=== PATIENT | male | born 1980 | race African-American/Black ===

== ENCOUNTER 2022-09-06 02:06 | Emergency (ER) | payer MEDICAID ==
[~2022-09-06] VITALS: Ht 182.9 cm; Wt 92.5 kg
[2022-09-06 02:11] VITALS: BP_SYST 139
--- NOTE | 2022-09-06 02:20 | NUR ---
Pt from home with c/o palpitations that started today. Pt reports dizziness and weakness in the bilateral legs. Pt reports having a lot of caffine today. HR in 70s and increases to 90s when pt starts to feel dizzy.
--- NOTE | 2022-09-06 02:27 | NUR ---
OZZY Steven at bedside.
[2022-09-06] MEDS ORDERED: MECLIZINE HCL 25 MG TABLET (ANITVERT) PO ONE (02:30)
[2022-09-06] MEDS ORDERED: NACL 0.9% 1,000 ML IV ONE (02:30)
[2022-09-06] MEDS ORDERED: METOCLOPRAMIDE HCL 10 MG/2 ML VIAL IVP ONE (02:30)
--- NOTE | 2022-09-06 02:33 | NUR ---
Patient to ER bed 07 to gown for evaluation. Side rails up. Report given to Deanna THOMPSON.
--- NOTE | 2022-09-06 02:33 | NUR ---
Report received from JAY Grey; assuming care of patient at this time.
--- NOTE | 2022-09-06 02:50 | NUR ---
# 22 gauge angiocath placed to right ac. Use of asceptic technique. Opsite placed over site. Blood return noted. Flushed with 10 cc of normal saline. No evidence of infiltration noted. Patient tolerated well.
--- NOTE | 2022-09-06 03:00 | NUR ---
Patient resting in bed with side rails raised. Patient's significant other at bedside. Nad noted at this time.
[2022-09-06 04:24] LABS: CALCIUM 8.4 mg/dL (8.4-11.0); CREATININE 1.36 mg/dL (0.55-1.30); POTASSIUM 3.7 mmol/L (3.5-5.1)
[2022-09-06 04:30] LABS: BASOPHILS % (AUTO) 0.6 % (0.0-2.0); EOSINOPHILS # (AUTO) 0.5 K/uL (0.0-0.4); EOSINOPHILS % (AUTO) 6.1 % (0.0-4.0); HEMATOCRIT 46.8 % (36-54); HEMOGLOBIN 16.2 g/dL (14.0-18.0); LYMPHOCYTES % (AUTO) 23.6 % (20.5-51.5); MEAN CORPUSCULAR HEMOGLOBIN 31 pg (27-31); MEAN CORPUSCULAR HGB CONC 35 % (32-36); MEAN CORPUSCULAR VOLUME 90 fL (79.0-98.0); MONOCYTES # (AUTO) 0.5 K/uL (0.0-1.0); MONOCYTES % (AUTO) 6.6 % (1.7-9.3); NEUTROPHILS # (AUTO) 5.2 K/uL (1.8-7.7); NEUTROPHILS % (AUTO) 63.1 % (40.0-70.0); PLATELET COUNT (AUTO) 215 K/uL (130-430); RED BLOOD CELL COUNT(AUTO) 5.18 MIL/uL (4.2-6.2); RED CELL DISTRIBUTION WIDTH 13.5 % (9.0-15.0); WHITE BLOOD COUNT (AUTO) 8.3 K/uL (4.8-10.8)
[2022-09-06 04:31] LABS: ALBUMIN 3.9 g/dL (3.4-4.8); TOTAL BILIRUBIN 0.4 mg/dL (0.0-1.0)
[2022-09-06] MEDS ORDERED: MECL-261 PO (04:49)
--- NOTE | 2022-09-06 05:07 | NUR ---
Patient given written and verbal discharge instructions and verbalizes understanding. ER MD discussed with patient the results and treatment provided. Patient in stable condition. ID arm band removed. IV catheter removed intact and dressing applied, no active bleeding. Rx of Meclizine HCL given. Patient educated on pain management and to follow up with PMD. Pain Scale 0/10. Opportunity for questions provided and answered. Medication side effect fact sheet provided. Patient A/Ox4, VSS, ambulatory, resp even and unlabored. Patient accompanied by significant other and in stable condition upon discharge.
[2022-09-06 05:26] VITALS: BP_SYST 139
== END 2022-09-06 05:26 | disposition home or self-care (01) ==
LOC: SED 02:06
DX: R00.2 Palpitations (principal); R42 Dizziness and giddiness; Z79.899 Other long term (current) drug therapy
CPT/HCPCS: 99284; 96374; 96361; 80053; 85025; 84484; 36415; 93005; J8597; J2765; J7030

== ENCOUNTER 2023-11-13 21:54 | Emergency (ER) | payer MEDICAID ==
[~2023-11-13] VITALS: Ht 182.9 cm; Wt 97.5 kg
[~2023-11-13 21:54] MED LIST: MECL-261 PO
[2023-11-13 22:26] VITALS: BP_SYST 130; PULSE 70; RESP 20; TEMP 98.8; O2SAT 98
[2023-11-13] MEDS ORDERED: OXYM15MI9 NS (23:22)
[2023-11-13 23:41] VITALS: BP_SYST 138; PULSE 84; RESP 18; TEMP 98.3; O2SAT 97
== END 2023-11-13 23:49 | disposition home or self-care (01) ==
LOC: SED 21:54
DX: H72.91 Unspecified perforation of tympanic membrane, right ear (principal); Z79.899 Other long term (current) drug therapy
CPT/HCPCS: 99282